=== PATIENT | male | born 1960 | race African-American/Black ===

== ENCOUNTER 2019-07-31 13:17 | Observation (INO) ==
[2019-07-31] MEDS ORDERED: ONDANSETRON 4 MG/2 ML VIAL IV PRN (15:05)
[2019-07-31] MEDS ORDERED: ACETAMINOPHEN 325 MG TABLET PO PRN (15:05)
[2019-07-31] MEDS ORDERED: BISACODYL 5 MG TABLET PO PRN (15:05)
[2019-07-31] MEDS ORDERED: DEXTROSE 10% 250 ML BAG IV PRN (15:37)
[2019-07-31] MEDS ORDERED: GLUCAGON 1 MG VIAL IM PRN (15:37)
[2019-07-31] MEDS ORDERED: METOPROLOL TARTRATE 25 MG TABLET PO SCH (16:00)
[2019-07-31] MEDS ORDERED: oxyCODONE/ACETAMINOPHEN 5-325 MG TABLET PO PRN (16:00)
[2019-07-31 16:13] LABS: Bilirubin,Total 0.6 MG/DL (0.2-1.0); Calcium 9.2 MG/DL (8.5-10.1); Osmolality,Calculated 288.8 MOS/KG (273-304); Total Protein 7.7 G/DL (6.4-8.3)
[2019-07-31 16:20] LABS: Risk Ratio 2.45; Thyroid Stimulating Hormone 0.922 uIU/ml (0.358-3.74)
[2019-07-31] MEDS: SODIUM CHLORIDE 0.9% 1,000 ML IV SCH (16:28)
[2019-07-31] MEDS: ASPIRIN EC 325 MG TABLET PO SCH (17:02)
[2019-07-31] MEDS: INSULIN REGULAR 100 UNIT/ML SUBCUT SCH ×2 (17:03→20:35)
[2019-07-31 17:14] LABS: Basophils % 0.4 % (0.0-0.8); Eosinophils % 0.4 % (0.00-10.9); Hematocrit 41.8 VOL% (42.0-52.0); Hemoglobin 13.6 GM/DL (14.0-18.0); Immature Granulocytes % 0.3 %; Immature Granulocytes Absolute 0.03 #; Lymphocytes # 1.4 10*3/uL (1.4-4.0); Lymphocytes % 15.6 % (21.2-54.2); Mean Corpuscular HGB Conc 32.5 GM/DL (32-36); Mean Corpuscular Volume 84.3 FL (87-102); Mean Platelet Volume 9.4 FL (9.6-12.0); Monocytes % 7.5 % (1.7-12.7); Neutrophils % 75.8 % (38.7-73.9); Platelet Count 164 T/CUMM (130-400); Red Blood Count 4.96 MC/CUMM (3.8-5.5); Red Cell Distribution Width 13.1 % (9.3-17.3); White Blood Count 9.2 T/CUMM (4-12)
[2019-07-31] MEDS: APIXABAN 5 MG TABLET PO SCH ×2 (17:54→20:35)
[2019-07-31] MEDS: carvediloL 6.25 MG TABLET PO SCH (18:27)
[2019-07-31 19:54] LABS: Apearance,Urine CLEAR (Clear); Bilirubin,Urine Negative (Negative); Blood, Urine Small mg/dL (Negative); Glucose,Urine (UA) >=500 mg/dL (Negative); Hyaline Casts,Urine 4 /LPF (0-3); Ketones,Urine 20 mg/dL (Negative); Mucus,Urine Occasional /LPF (Occasional); Nitrite,Urine Negative (Negative); Protein,Urine 30 MG/DL; RBC,Urine 3 /HPF (0-4); Squamous Epithelial Cell,Urine Occasional /HPF (0-10); Urine Color Straw (Yellow); Urine Specific Gravity 1.028 (1.001-1.035); Urine Urobilinogen < 2.0 EU/DL (0.2-1.0); WBC,Urine <1 /HPF (0-6)
[2019-07-31 19:57] LABS: Barbiturates Screen,Urine Negative (Negative); Benzodiazepines Screen,Urine Negative (Negative); Cannabinoid Screen,Urine Negative (Negative); Opiate Screen,Urine Negative (Negative); Phencyclidine Screen,Urine Negative (Negative)
[2019-07-31] MEDS: MAGNESIUM OXIDE 400 MG TABLET PO SCH (20:34)
[2019-07-31] MEDS: ROSUVASTATIN 20 MG TABLET PO SCH (20:34)
[2019-07-31 21:00] LABS: VBG Base Excess 0.2 MEQ/L (0-4); VBG HCO3 24.5 MEQ/L (24-28); VBG Oxygen Saturation 92.4 %; VBG PCO2 33.3 MMHG (41-51); VBG PH 7.455; VBG PO2 62.3 MMHG (17-40)
[2019-07-31] MEDS ORDERED: ENOXAPARIN 40 MG/0.4 ML SYRINGE SUBCUT SCH (21:00)
[2019-08-01 04:50] LABS: Calcium 8.5 MG/DL (8.5-10.1); Osmolality,Calculated 280.7 MOS/KG (273-304)
[2019-08-01] MEDS: SODIUM CHLORIDE 0.9% 1,000 ML IV SCH (06:31)
[2019-08-01] MEDS: MAGNESIUM OXIDE 400 MG TABLET PO SCH ×2 (08:53→20:47)
[2019-08-01] MEDS: PANTOPRAZOLE 40 MG TABLET PO SCH (08:54)
[2019-08-01] MEDS: carvediloL 6.25 MG TABLET PO SCH ×2 (08:54→17:10)
[2019-08-01] MEDS: ASPIRIN EC 325 MG TABLET PO SCH (08:54)
[2019-08-01] MEDS: APIXABAN 5 MG TABLET PO SCH ×2 (09:02→20:47)
[2019-08-01] MEDS ORDERED: GLUCAGON 1 MG VIAL IM PRN (09:04)
[2019-08-01] MEDS ORDERED: DEXTROSE 50% 25 GM/50 ML VIAL IV PRN (09:04)
[2019-08-01] MEDS: INSULIN REGULAR 100 UNIT/ML SUBCUT SCH ×4 (10:24→20:47)
[2019-08-01] MEDS: INSULIN LISPRO PROTAMINE SUBCUT SCH (16:18)
[2019-08-01] MEDS: LISPRO SUBCUT SCH (16:18)
[2019-08-01] MEDS: INSULIN LISPRO 100 UNIT/ML SUBCUT SCH (17:10)
[2019-08-01] MEDS: ROSUVASTATIN 20 MG TABLET PO SCH (20:47)
[2019-08-01] MEDS ORDERED: INSULIN GLARGINE 100 UNIT/ML SUBCUT SCH (21:00)
[2019-08-02] MEDS: carvediloL 6.25 MG TABLET PO SCH (08:58)
[2019-08-02] MEDS: APIXABAN 5 MG TABLET PO SCH (08:58)
[2019-08-02] MEDS: MAGNESIUM OXIDE 400 MG TABLET PO SCH (08:58)
[2019-08-02] MEDS: PANTOPRAZOLE 40 MG TABLET PO SCH (08:58)
[2019-08-02] MEDS: INSULIN REGULAR 100 UNIT/ML SUBCUT SCH ×2 (08:59→12:22)
[2019-08-02] MEDS: ASPIRIN EC 325 MG TABLET PO SCH (08:59)
[2019-08-02] MEDS: INSULIN LISPRO 100 UNIT/ML SUBCUT SCH (09:00)
[2019-08-02 12:25] VITALS: BP 143/79
== END 2019-08-02 14:42 | disposition home health service (06) ==
LOC: N.TELEN → SUATTDRO 14:13
PROVIDERS: ADMIT Internal Medicine; ATTEND Internal Medicine